=== PATIENT | female | born 1995 | race Caucasian/White ===

== ENCOUNTER → 2022-02-19 | Outpatient (CLI) | payer BC ==
[~2022-02-19] MED LIST: CATHETER FLUSH 10 ML SYR IV PRN; HOLD METFORMIN - RECEIVED CONTRAST 20 ML VIAL IV SCH; IOHEXOL 350 MG/ML 100 ML (OMNIPAQUE 350) VIAL IV ONE; NS 100 ML (IVPB) BAG IV ONE
--- NOTE | 2022-02-19 16:38 | Diagnostic Imaging Report ---
PROCEDURE: CT neck soft tissue with contrast. TECHNIQUE: Multiple contiguous axial images were obtained through the neck after the administration of contrast. Auto Exposure Controls were utilized during the CT exam to meet ALARA standards for radiation dose reduction. INDICATION: Throat pain. Headache. COMPARISON: None. FINDINGS: No suspicious mass or enhancement in the pharynx or larynx. No cervical lymphadenopathy. The visualized floor of the mouth, tongue base, epiglottis and retropharyngeal space are unremarkable. Major vessels in the neck are grossly patent. The thyroid and major salivary glands are normal. No substantial spondylotic change in the cervical spine. No acute osseous findings. Lung apices are clear. IMPRESSION: Normal CT of the neck with IV contrast. No acute findings. Dictated by: Dictated on workstation # [id number]
== END ==
LOC: RAD 14:45
PROVIDERS: ATTEND Otolaryngology Otolaryngology/Facial Plastic Surgery
DX: R07.0 Pain in throat (principal); M54.2 Cervicalgia; R51.9 Headache, unspecified
CPT/HCPCS: 70491